=== PATIENT | female | born 1990 | race Hispanic/Latino ===

== ENCOUNTER 2022-03-20 18:54 | Emergency (ER) | payer OTHER ==
[~2022-03-20] VITALS: Ht 167.6 cm; Wt 77.1 kg
[2022-03-20] MEDS ORDERED: IBUPROFEN 600 MG TAB PO STA (19:13)
[2022-03-20] MEDS ORDERED: IBUPROFEN 600 MG TAB ONE (19:28)
[2022-03-20] MEDS ORDERED: MOTRIN200 MG PO (21:23)
[2022-03-20 21:51] VITALS: BP 131/74
== END 2022-03-20 21:40 | disposition home or self-care (01) ==
LOC: ER 19:01
DX: S93.492A Sprain of other ligament of left ankle, initial encounter (principal); X50.1XXA Overexertion from prolonged static or awkward postures, initial encounter; Y93.01 Activity, walking, marching and hiking; Y92.89 Other specified places as the place of occurrence of the external cause; J45.909 Unspecified asthma, uncomplicated
CPT/HCPCS: 99284